=== PATIENT | male | born 1955 | race Caucasian/White ===

== ENCOUNTER 2023-06-29 10:58 | Inpatient (IN) | payer MEDICARE ==
[2023-06-29] VITALS (7 sets, daily range): BP systolic 114–138; BP diastolic 70–77; TEMP 97.7–98.8; O2SAT 91–97
[~2023-06-29] VITALS: Ht 180.3 cm; Wt 106.2 kg
[~2023-06-29 10:58] MED LIST: ACETAMINOPHEN 1000MG 100ML IV BAG As Ordered ONE; AZEL0.1S NARES; CETI10CH PO; FLUT50SP33; GLUCTAB7 PO; HYDROmorphone HCL 2MG/ML 1ML VIAL As Ordered ONE; LIDOCAINE 2% 100MG/5ML SDV (FOR ANES.) As Ordered ONE; LISI10TA22 PO; MIDAZOLAM INJ 2MG/2ML VIAL As Ordered ONE; ONDANSETRON 4MG 2ML VIAL As Ordered ONE; ROCURONIUM BROMIDE 50MG/5ML VIAL As Ordered ONE; SUGAMMADEX SODIUM 500 MG/5 ML VIAL (BRIDION) As Ordered ONE; fentaNYL 100 MCG/2 ML INJECTION As Ordered ONE; propofoL 200 MG/20 ML VIAL As Ordered ONE
[2023-06-29] MEDS: LR 1,000 ML IV SCH ×2 (12:20→20:23)
[2023-06-29] MEDS ORDERED: ERGO500029 PO (12:20)
[2023-06-29] MEDS ORDERED: PERCOCET 5MG/325MG TAB PO PRN (13:05)
[2023-06-29] MEDS ORDERED: ACETAMINOPHEN TAB 650MG DOSE (2X325MG) PO PRN (13:05)
[2023-06-29] MEDS ORDERED: ONDANSETRON 4MG 2ML VIAL IV PRN (13:05)
[2023-06-29] MEDS: ceFAZolin SOD 2 GM in IV 1 EA IV ONE (13:15)
[2023-06-29] MEDS: HEPARIN SOD (PORCINE) 5000UNITS/ML 1ML VIAL/SYRINGE SQ ONE (13:22)
[2023-06-29] MEDS ORDERED: LABETALOL 100MG/20ML VIAL As Ordered ONE (13:43)
[2023-06-29] MEDS ORDERED: hydrALAZINE 20MG/ML 1ML VIAL As Ordered ONE (14:04)
[2023-06-29] MEDS ORDERED: HOME MED LIST COMPLETE! XX SCH (15:00)
[2023-06-29] MEDS: LIDOCAINE 1% SDV 30ML VIAL As Ordered ONE (17:29)
[2023-06-29] MEDS ORDERED: HYDROMORPHONE HCL 0.5 MG/ 0.5 ML SYRINGE IV PRN (17:30)
[2023-06-29] MEDS ORDERED: oxyCODONE 5MG TAB PO PRN (17:30)
[2023-06-29] MEDS ORDERED: fentaNYL 100 MCG/2 ML INJECTION IV PRN (17:30)
[2023-06-29 18:37] LABS: HEMATOCRIT 44.1 % (42.0-52.0); HEMOGLOBIN 14.3 g/dl (13.5-17.5); MEAN CORPUSCULAR HEMOGLOBIN 29.4 pg (27.0-33.0); MEAN CORPUSCULAR HGB CONC 32.4 g/dl (32.0-36.5); MEAN CORPUSCULAR VOLUME 90.7 fl (80.0-96.0); PLATELET COUNT, AUTOMATED 234 10^3/uL (150-450); RED BLOOD COUNT 4.86 10^6/uL (4.30-6.10); WHITE BLOOD COUNT 11.5 10^3/uL (4.0-10.0)
[2023-06-29] MEDS: ONDANSETRON 4MG 2ML VIAL IV PRN (18:39)
[2023-06-29 18:46] LABS: BLOOD UREA NITROGEN 12 MG/DL (9-23); CALCIUM LEVEL 8.1 MG/DL (8.3-10.6); CARBON DIOXIDE LEVEL 25 MMOL/L (20-31); CHLORIDE LEVEL 110 MMOL/L (98-107); CREATININE FOR GFR 0.75 MG/DL (0.70-1.30); GLOMERULAR FILTRATION RATE > 60.0 (>49); GLUCOSE, FASTING 152 MG/DL (74-106); POTASSIUM SERUM 4.6 MMOL/L (3.5-5.1); SODIUM LEVEL 140 MMOL/L (136-145)
[2023-06-29] MEDS: AZELASTINE 137MCG NASAL SPY 30 ML (ASTELIN) SCH (21:00)
[2023-06-29] MEDS: DOCUSATE SODIUM 100MG CAPSULE PO SCH (21:43)
[2023-06-29] MEDS: ceFAZolin SOD 1 GM in D5W MINI-BAG PLUS 50 ML IV SCH (21:43)
[2023-06-29] MEDS: HEPARIN SOD (PORCINE) 5000UNITS/ML 1ML VIAL/SYRINGE SC SCH (21:43)
[2023-06-29] MEDS: NS 1,000 ML IV SCH (21:52)
[2023-06-30 03:45] VITALS: BP 109/61; TEMP 98.9; O2SAT 90
[2023-06-30 06:35] LABS: HEMATOCRIT 40.2 % (42.0-52.0); HEMOGLOBIN 13.1 g/dl (13.5-17.5); MEAN CORPUSCULAR HEMOGLOBIN 29.8 pg (27.0-33.0); MEAN CORPUSCULAR HGB CONC 32.6 g/dl (32.0-36.5); MEAN CORPUSCULAR VOLUME 91.4 fl (80.0-96.0); PLATELET COUNT, AUTOMATED 233 10^3/uL (150-450)
[2023-06-30 06:59] LABS: BLOOD UREA NITROGEN 11 MG/DL (9-23); CALCIUM LEVEL 8.3 MG/DL (8.3-10.6); CARBON DIOXIDE LEVEL 27 MMOL/L (20-31); CHLORIDE LEVEL 109 MMOL/L (98-107); CREATININE FOR GFR 0.81 MG/DL (0.70-1.30); GLOMERULAR FILTRATION RATE > 60.0 (>49); GLUCOSE, FASTING 116 MG/DL (74-106); POTASSIUM SERUM 4.4 MMOL/L (3.5-5.1); SODIUM LEVEL 142 MMOL/L (136-145)
[2023-06-30 08:00] VITALS: O2SAT 92
[2023-06-30] MEDS: FLUTICASONE PROP 0.05% NASAL SPRAY 16 GM (FLONASE) NARES SCH (08:18)
[2023-06-30 08:19] VITALS: BP 125/74
[2023-06-30] MEDS: PERCOCET 5MG/325MG TAB PO PRN (08:50)
[2023-06-30 10:00] VITALS: BP 128/73; TEMP 98.6; O2SAT 93
[2023-06-30 14:00] VITALS: BP 125/73; TEMP 98.1; O2SAT 92
[2023-06-30] MEDS ORDERED: COLA100C5 PO (14:42)
[2023-06-30] MEDS ORDERED: PERCOCET PO (14:42)
[2023-06-30] MEDS ORDERED: CIPR-249 PO (14:42)
== END 2023-06-30 16:31 | disposition home or self-care (01) | DRG 708 ==
LOC: M OR 10:58 → M MSPAV 18:46
PROVIDERS: ADMIT Urology; ATTEND Urology
PROC: 07TC4ZZ Resection of Pelvis Lymphatic, Percutaneous Endoscopic Approach (ICD-10-PCS; 2023-06-29)
PROC: 8E0W4CZ Robotic Assisted Procedure of Trunk Region, Percutaneous Endoscopic Approach (ICD-10-PCS; 2023-06-29)
PROC: 0VT04ZZ Resection of Prostate, Percutaneous Endoscopic Approach (ICD-10-PCS; principal; 2023-06-29 12:45)
DX: C61 Malignant neoplasm of prostate (principal); Z88.6 Allergy status to analgesic agent; Z88.8 Allergy status to other drugs, medicaments and biological substances; Z79.899 Other long term (current) drug therapy